=== PATIENT | male | born 1945 | race Caucasian/White ===

== ENCOUNTER → 2017-04-19 | Day surgery (SDC) | payer MEDICARE ==
[~2017-04-19] MED LIST: AMLO5TAB2 PO; ASPI-94 PO; COQ-100C2 PO; HYDR-3533 PO; LIDOCAINE HCL 1% 30 ML VIAL INFIL ONE; MEPERIDINE HCL 25 MG/ML VIAL IV ONE; MEPERIDINE HCL 50 MG/ML VIAL IV ONE; METO50TA PO; MIDAZOLAM HCL 2 MG/2 ML VIAL IV ONE; MOBI15TA PO; OXYB5TAB PO; PANT20 PO; PROPOFOL 200 MG/20 ML AMP IV ONE; RAMI10CA PO; SODIUM CHLORIDE 0.9% 10 ML VIAL ONE; ZOCO40TA PO; methylPREDNISolone ACETATE 40 MG/ML VIAL I-ARTICULR ONE
--- NOTE | 2017-04-19 11:42 | M6 ---
cc: JOLIE ROMANO M.D., JAVIER M.D. DATE: 04/19/2017 DATE OF : 1945 PROCEDURE Radiofrequency rhizotomy bilateral lumbar facet joints (bilateral L3-4, L4-5 and L5-S1 facet joints. INDICATION Mr. Knox has chronic low back pain. In the past he has had good relief from radiofrequency ablation of the bilateral lumbar facet joints. The last time we did that procedure was almost a year ago in June 2016. He had good relief of his back pain until just the last few weeks. Now the pain has returned, worse on the left than the right, and we are simply repeating the previously effective radiofrequency ablation of bilateral lumbar facet joints. History and physical was completed and signed. Consent was signed. Procedure site was marked. Medications were listed and reconciled. Pain score was recorded. Allergies were noted. Timeout was taken. Fluoroscopy time was recorded where applicable. Sedation was administered or directed by Dr. Romano. The patient was given oxygen. The patient was monitored by a registered nurse. Total procedure time was greater than 15 minutes. Three levels are being done because imaging studies show arthritis in all lumbar facet joints and because each facet joint is innervated by the medial branches from the nerves above and below that particular joint. The patient reported 50% or greater pain relief from previous diagnostic facet joint blocks done with fluoroscopic guidance. PROCEDURE NOTE An IV was started, blood pressure cuff, pulse oximeter and EKG were applied. The patient was placed in the prone position on a Saji table, sedated with small amounts of Versed and fentanyl and propofol titrated to effect. Vital signs were monitored and remained stable throughout the procedure. The lumbar area was scrubbed with antimicrobial solution, prepped with 10% Betadine solution, draped with sterile drapes. Fluoroscopy was used in a slightly oblique angle (Nathaniel dog view) to clearly visualize the target areas which were the cephalad most medial angle of the transverse processes as they met the pedicle in the anatomical location of the medial branch of the posterior primary ramus on the bilateral L3-4, L4-5 and L5-S1 facet joints. The skin was infiltrated with 1% Xylocaine using a 27-gauge needle. An insulated 20-gauge radiofrequency needle with a 10 mm curved tip was advanced to the above-mentioned target areas. Fluoroscopy was used to confirm the needle was properly placed and not near the nerve root. At no time did the patient report any paresthesias down the lower extremity. Once properly positioned thermal lesions took place at 80 degrees centigrade x 100 seconds at each location. Then, a small amount of Depo-Medrol was injected at each location for a total of 40 mg of Depo-Medrol. Following this the patient was taken to the recovery room with stable vital signs, neurologically intact. W. MD SHAINA Cuenca/MONCHO /8:17 AM /11:27 AM
== END | disposition home or self-care (01) ==
LOC: PHSDC 06:40
PROVIDERS: ATTEND Pain Medicine Interventional Pain Medicine
DX: M54.5 Low back pain (principal); G89.29 Other chronic pain
CPT/HCPCS: 64635; 64636; 99152; 99153; J1030; J2175; J2250